=== PATIENT | female | born 1955 | race Caucasian/White ===

== ENCOUNTER 2019-02-21 11:40 | Observation (INO) | payer MEDICARE, OTHER ==
[~2019-02-21] VITALS: Ht 165.1 cm; Wt 85.0 kg
[2019-02-21] MEDS ORDERED: aspirin 325mg tablet PO ONE (12:05)
[2019-02-21 12:41] LABS: BASOPHILS % (AUTO) 0.4 % (0-1); EOSINOPHILS # (AUTO) 0.1 X10'3 (0-0.9); EOSINOPHILS % (AUTO) 1.5 % (0-6); HEMATOCRIT 41.3 % (35.0-45.0); HEMOGLOBIN 13.6 g/dl (12.0-16.0); LYMPHOCYTES # (AUTO) 2.5 X10'3 (1.1-4.8); LYMPHOCYTES % (AUTO) 34.2 % (21-51); MEAN CORPUSCULAR HEMOGLOBIN 27.7 PG (27.0-31.0); MEAN PLATELET VOLUME 8.3 FL (7.4-10.4); MONOCYTES # (AUTO) 0.5 X10'3 (0-0.9); MONOCYTES % (AUTO) 6.5 % (2-12); NEUTROPHILS # (AUTO) 4.1 X10'3 (1.8-7.7); NEUTROPHILS % (AUTO) 57.4 % (42-75); PLATELET COUNT 238 X10'3 (140-440); RED BLOOD COUNT 4.92 X10'6 (4.20-5.60); RED CELL DISTRIBUTION WIDTH 15.7 % (11.5-14.5); WHITE BLOOD COUNT 7.2 X10'3 (4.5-11.0)
[2019-02-21 12:49] LABS: PARTIAL THROMBOPLASTIN TIME 23 SECONDS (22-32)
[2019-02-21 12:57] LABS: ALANINE AMINOTRANSFERASE 33 U/L (12-78); ALBUMIN 4.1 G/DL (3.4-5.0); ALBUMIN/GLOBULIN RATIO 1.2 (1.1-1.5); ALKALINE PHOSPHATASE 137 IU/L (46-116); ANION GAP 8 (8-16); ASPARTATE AMINO TRANSFERASE 21 U/L (10-37); BILIRUBIN,TOTAL 0.3 MG/DL (0.1-1.0); BLOOD UREA NITROGEN 19 MG/DL (7-18); BUN/CREATININE RATIO 24.4 (6.6-38.0); CALCIUM 9.6 MG/DL (8.5-10.1); CHLORIDE 102 MMOL/L (99-107); CREATININE 0.78 MG/DL (0.40-0.90); GLUCOSE 86 MG/DL (70-104); POTASSIUM 3.7 MMOL/L (3.5-5.1); SODIUM 140 MMOL/L (135-145); TOTAL CARBON DIOXIDE 30.2 MMOL/L (24-32); TOTAL PROTEIN 7.4 G/DL (6.4-8.2); eGFR 74 ML/MIN
[2019-02-21] MEDS ORDERED: enoxaparin 100mg/ml syringe SUBCUT ONE (13:00)
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
[2019-02-21] MEDS ORDERED: normal saline 1000ml 1,000 ML IV SCH (14:47)
[2019-02-21] MEDS ORDERED: potassium Cl 20 mEq SR tablet PO PRN ×2 (14:50)
[2019-02-21] MEDS ORDERED: ondansetron/PF 4mg/2ml inj IV PRN (14:50)
[2019-02-21] MEDS ORDERED: magnesium 4gm in 100ml NS 100 ML IV PRN (14:50)
[2019-02-21] MEDS ORDERED: magnesium Cl slow-release 64mg tablet PO PRN (14:50)
[2019-02-21] MEDS ORDERED: potassium Cl 40MEQ/NS 500ml 500 ML IV PRN ×2 (14:50)
[2019-02-21] MEDS ORDERED: acetaminophen 325mg tablet PO PRN (14:50)
[2019-02-21] MEDS ORDERED: diphenhydrAMINE 25mg capsule PO PRN (14:50)
[2019-02-21] MEDS ORDERED: magnesium 2GM in 50ml NS 50 ML IV PRN (14:50)
[2019-02-21] MEDS ORDERED: DIAZ5TAB4 PO ×2 (16:10→17:59)
[2019-02-21] MEDS ORDERED: SYN0.088T PO (16:10)
[2019-02-21] MEDS ORDERED: HYDR-3565 PO ×2 (16:10→17:59)
[2019-02-21] MEDS ORDERED: PRAZ2CAP2 PO (16:10)
[2019-02-21] MEDS ORDERED: [UNRECOGNIZED DRUG - CODE] (16:10)
[2019-02-21] MEDS ORDERED: DESV50TA PO (16:10)
[2019-02-21] MEDS ORDERED: FURO-150 PO ×2 (16:12→17:59)
[2019-02-21] MEDS ORDERED: FLAX100015 PO (17:59)
[2019-02-21] MEDS ORDERED: POTA10TA15 PO (17:59)
[2019-02-21] MEDS ORDERED: GARL10004 PO (17:59)
[2019-02-21] MEDS ORDERED: ACET600C PO (17:59)
[2019-02-21] MEDS ORDERED: LIOT25TA6 PO (17:59)
[2019-02-21] MEDS ORDERED: FISH12002 PO (17:59)
[2019-02-21] MEDS ORDERED: ALPH100C PO (17:59)
[2019-02-21] MEDS: docusate sod 100mg capsule PO SCH (19:38)
--- NOTE | 2019-02-22 05:47 | NUR ---
PT SLEPT MOST OF THE NIGHT, PT HAD NO COMPLAINTS. PT AWOKE WHEN CHECKED ON, REQUESTING WATER.
--- NOTE | 2019-02-22 06:40 | NUR ---
Assumed care of patient. Patient sitting up in bed reading. Patient deneis any pain or needs at this time.
--- NOTE | 2019-02-22 07:01 | NUR ---
Report received from ED [facility].
--- NOTE | 2019-02-22 07:50 | NUR ---
Pt arrived to room 359B from ED.
[2019-02-22 07:55] VITALS: BP 128/101
[2019-02-22] MEDS ORDERED: K and/or MAG REPLACEMENT MC SCH (08:00)
[2019-02-22] MEDS: docusate sod 100mg capsule PO SCH (09:12)
[2019-02-22] MEDS ORDERED: LIOthyronine 25mcg tablet PO SCH (10:02)
[2019-02-22] MEDS ORDERED: diazepam 5mg tablet PO SCH (10:02)
[2019-02-22] MEDS ORDERED: potassium chloride 10mEq ER tablet PO SCH (10:05)
[2019-02-22] MEDS ORDERED: HYDROcodone/acetaminophen 5mg/325mg tablet PO SCH (10:07)
[2019-02-22] MEDS ORDERED: venlafaxine 25mg tablet PO SCH (10:08)
[2019-02-22 10:15] VITALS: BP 125/53
--- NOTE | 2019-02-22 10:30 | NUR ---
SaO2 w/activity=92%.
[2019-02-22 10:50] LABS: BASOPHILS % (AUTO) 0.5 % (0-1); EOSINOPHILS # (AUTO) 0.1 X10'3 (0-0.9); EOSINOPHILS % (AUTO) 2.5 % (0-6); HEMATOCRIT 40.5 % (35.0-45.0); HEMOGLOBIN 13.3 g/dl (12.0-16.0); LYMPHOCYTES # (AUTO) 1.9 X10'3 (1.1-4.8); LYMPHOCYTES % (AUTO) 37.2 % (21-51); MEAN CORPUSCULAR HEMOGLOBIN 27.5 PG (27.0-31.0); MEAN CORPUSCULAR HGB CONC 32.9 g/dL (33.0-36.5); MEAN CORPUSCULAR VOLUME 83.6 FL (78-98); MEAN PLATELET VOLUME 8.5 FL (7.4-10.4); MONOCYTES # (AUTO) 0.3 X10'3 (0-0.9); MONOCYTES % (AUTO) 6.4 % (2-12); NEUTROPHILS # (AUTO) 2.8 X10'3 (1.8-7.7); NEUTROPHILS % (AUTO) 53.4 % (42-75); PLATELET COUNT 224 X10'3 (140-440); RED BLOOD COUNT 4.84 X10'6 (4.20-5.60); RED CELL DISTRIBUTION WIDTH 15.8 % (11.5-14.5); WHITE BLOOD COUNT 5.2 X10'3 (4.5-11.0)
[2019-02-22 10:59] LABS: ALBUMIN 3.8 G/DL (3.4-5.0); ANION GAP 8 (8-16); BLOOD UREA NITROGEN 16 MG/DL (7-18); BUN/CREATININE RATIO 20.5 (6.6-38.0); CALCIUM 8.9 MG/DL (8.5-10.1); CHLORIDE 103 MMOL/L (99-107); CREATININE 0.78 MG/DL (0.40-0.90); GLUCOSE 101 MG/DL (70-104); POTASSIUM 3.7 MMOL/L (3.5-5.1); SODIUM 139 MMOL/L (135-145); eGFR 74 ML/MIN
[2019-02-22 11:00] VITALS: BP 154/86
--- NOTE | 2019-02-22 11:00 | NUR ---
Pt refuses meds stating she will take them when she gets home
--- NOTE | 2019-02-22 12:15 | NUR ---
DC inst provided to pt. IV DC'd, tip intact. All belongings sent w/pt. WC to front lobby.
[2019-02-22] MEDS ORDERED: ACETYLCYSTEINE PO SCH (20:00)
[2019-02-22] MEDS ORDERED: prazosin 1mg capsule PO SCH (21:00)
[2019-02-23] MEDS ORDERED: non-formulary drug (Fish Oil/Borage/Flax/Om3,6,9#1 (Omega 3-6-9 1,200 mg Softgel) 1 CAP) PO SCH (08:00)
[2019-02-23] MEDS ORDERED: ALPHA LIPOIC ACID 200 MG PO SCH (08:00)
[2019-02-23] MEDS ORDERED: FLAXSEED OIL 2000 MG PO SCH (08:00)
== END 2019-02-22 11:45 | disposition home or self-care (01) ==
LOC: ER 11:41 → ED HOLD 14:47 → UNDOADMOB 14:47 → SUR 3N 14:47 → EDBEDREQ 02-22 05:03 → ED HOLD 02-22 07:52 → SUR 3N 02-22 07:52 → UNDODISOB 02-22 11:45
PROVIDERS: ADMIT Internal Medicine; ATTEND Internal Medicine
DX: R00.2 Palpitations (principal); E03.9 Hypothyroidism, unspecified; F43.10 Post-traumatic stress disorder, unspecified; I10 Essential (primary) hypertension; E78.5 Hyperlipidemia, unspecified; Z87.891 Personal history of nicotine dependence; Z79.899 Other long term (current) drug therapy
CPT/HCPCS: 36415; 71045; 80048; 80053; 83735; 84484; 85025; 85610; 85730; 87070; 93005; 99284; G0378; J1650